=== PATIENT | male | born 1985 | race Caucasian/White ===

== ENCOUNTER 2018-02-14 23:12 | Emergency (ER) | payer BC, SELFPAY ==
[2018-02-14] MEDS ORDERED: Acetaminophen/Codeine 30-300mg Tablet ONE (23:57)
--- NOTE | 2018-02-15 07:38 | RAD ---
RADIOGRAPH RIGHT HAND 3 VIEWS: Date: 02/14/18 Time: 1158 hours HISTORY: 32-year-old male status post injury to dorsum of hand from fall. FINDINGS: It is difficult to evaluate the phalanges because they are flexed on these images. No fracture or dis location is identified. IMPRESSION: No fracture identified. POS: [facility]
== END 2018-02-15 00:39 | disposition home or self-care (01) ==
LOC: ERS 23:12
DX: S60.221A Contusion of right hand, initial encounter (principal); W01.10XA Fall on same level from slipping, tripping and stumbling with subsequent striking against unspecified object, initial encounter

== ENCOUNTER 2018-03-21 13:09 | Emergency (ER) | payer BC ==
--- NOTE | 2018-03-21 14:30 | RAD ---
FOUR VIEW LEFT KNEE SERIES: Indication: Injury, pain in left knee. FINDINGS: There is no evidence of fracture or dislocation of the left knee. No significant joint capsular diste ntion. Artifacts are seen overlying the imaged left thigh limiting visualization. IMPRESSION: No acute osseous abnormality left knee. POS: [facility]
[2018-03-21] MEDS ORDERED: Adacel (T-DAP) 0.5 ML VIAL ONE (14:38)
[2018-03-21] MEDS ORDERED: Ketorolac Tromethamine 30 MG/ML VIAL ONE (14:38)
== END 2018-03-21 15:32 | disposition home or self-care (01) ==
LOC: ERS 13:09
DX: S83.92XA Sprain of unspecified site of left knee, initial encounter (principal); L03.116 Cellulitis of left lower limb; F41.9 Anxiety disorder, unspecified; F32.9 Major depressive disorder, single episode, unspecified; Z71.6 Tobacco abuse counseling; F17.210 Nicotine dependence, cigarettes, uncomplicated; W01.0XXA Fall on same level from slipping, tripping and stumbling without subsequent striking against object, initial encounter
CPT/HCPCS: 90471; 90715; 96372; 99406; J1885

== ENCOUNTER 2019-04-18 19:18 | Emergency (ER) | payer BC ==
--- NOTE | 2019-04-18 19:36 | RAD ---
XR Hand Lt 3 View STANDARD: 04/18/2019 7:22 PM CLINICAL INDICATION: Hit left fingers with a hammer COMPARISON: None. TECHNIQUE: 3 views. Laterality: Left hand. FINDINGS: Bones: No acute osseous abnormality. Joints: Joint spaces are preserved.. Soft Tissue: Soft tissues are normal appearing.. IMPRESSION: No acute osseous abnormality..
[2019-04-18] MEDS ORDERED: HYDROcodone/Acetaminophen 10/325 mg Tablet ONE (20:30)
== END 2019-04-18 20:50 | disposition home or self-care (01) ==
LOC: ERS 19:18
DX: S60.042A Contusion of left ring finger without damage to nail, initial encounter (principal); Z71.6 Tobacco abuse counseling; F41.9 Anxiety disorder, unspecified; F32.9 Major depressive disorder, single episode, unspecified; F17.210 Nicotine dependence, cigarettes, uncomplicated; W23.0XXA Caught, crushed, jammed, or pinched between moving objects, initial encounter

== ENCOUNTER 2020-04-28 17:35 | Emergency (ER) | payer SELFPAY ==
[2020-04-28] MEDS ORDERED: Ketorolac Tromethamine 30 MG/ML VIAL ONE (18:37)
--- NOTE | 2020-04-28 18:42 | RAD ---
Exam:Right shoulder 3 views HISTORY: Pain x4 weeks. Fall 4 weeks ago. COMPARISON: None FINDINGS: Glenohumeral joint space is preserved. No fracture or dislocation. IMPRESSION: No fracture or dislocation.
== END 2020-04-28 19:07 | disposition home or self-care (01) ==
LOC: ERS 17:35
DX: M25.511 Pain in right shoulder (principal); M06.9 Rheumatoid arthritis, unspecified; F41.9 Anxiety disorder, unspecified; F32.9 Major depressive disorder, single episode, unspecified; F17.210 Nicotine dependence, cigarettes, uncomplicated
CPT/HCPCS: 96372; J1885

== ENCOUNTER 2020-09-22 03:24 | Emergency (ER) | payer BC, SELFPAY ==
[2020-09-22] MEDS ORDERED: Ketorolac Tromethamine 30 MG/ML VIAL ONE (07:44)
--- NOTE | 2020-09-22 08:12 | RAD ---
LEFT RIB SERIES INDICATION: Rib pain after leaning over a rail COMPARISON: None. FINDINGS: Visualized Left Chest: Visualized left lung is clear. No pneumothorax. Left Ribs: No displaced left-sided rib fracture is demonstrated. IMPRESSION: No displaced left-sided rib fracture
--- NOTE | 2020-09-22 09:12 | RAD ---
CHEST 1 VIEW PORTABLE: HISTORY: Chest pain, primarily left-sided. FINDINGS: Heart size is normal. The lungs appear clear. No confluent pneumonia, overt edema, or pleural effus ion. IMPRESSION: No significant acute intrathoracic disease. POS: [facility]
== END 2020-09-22 08:21 | disposition home or self-care (01) ==
LOC: ERS 03:24
DX: S20.212A Contusion of left front wall of thorax, initial encounter (principal); F17.210 Nicotine dependence, cigarettes, uncomplicated; M06.9 Rheumatoid arthritis, unspecified; X50.1XXA Overexertion from prolonged static or awkward postures, initial encounter
CPT/HCPCS: 71045; 96372; J1885

== ENCOUNTER 2021-09-10 12:53 | Emergency (ER) | payer BC, SELFPAY ==
[2021-09-10] MEDS ORDERED: Iopamidol-370 76% 500 ML 1 ML ONE (14:13)
[2021-09-10 14:45] LABS: #Basophils 0.1 thou/uL (0.0-0.2); #Eosinphils 0.2 thou/uL (0.0-0.7); #Monocytes 0.8 thou/uL (0.11-0.59); %Eosinophils 2.8 % (0.0-10.0); %Lymphocytes 24.2 % (21.0-51.0); %Monocytes 9.3 % (0.0-10.0); %Neutrophils 62.7 % (42.0-75.0); Hemoglobin 13.1 g/dL (14.0-18.0); Mean Corpuscular HGB CONC 31.6 g/dL (32.0-36.0); Mean Corpuscular Hemoglobin 29.2 pg (27.0-31.0); Mean Corpuscular Volume 92.4 fL (78.0-98.0); Platelet Count 322 thou/uL (130-400); RBC Distribution Width 11.2 % (11.5-14.5); Red Blood Cell (RBC) Count 4.47 mill/uL (4.70-6.10)
[2021-09-10] MEDS ORDERED: Bupivacaine 0.5% 10 ML VIAL ONE (14:58)
[2021-09-10] MEDS ORDERED: Ketorolac Tromethamine 30 MG/ML VIAL ONE (15:02)
[2021-09-10 15:05] LABS: ALT (SGPT) 10 U/L (8-55); AST (SGOT) 30 U/L (5-34); Albumin 4.2 g/dL (3.5-5.0); Alkaline Phosphatase 55 U/L (40-110); Anion Gap 17 mmol/L (10-20); BUN (Urea Nitrogen) 16 mg/dL (8.9-20.6); Bilirubin, Total 0.3 mg/dL (0.2-1.2); Calc. Creatinine Clearance 0 mL/min (70-130); Calcium 9.5 mg/dL (7.8-10.44); Carbon Dioxide 20 mmol/L (22-29); Chloride 102 mmol/L (98-107); Globulin 3.3 g/dL (2.4-3.5); Glucose 113 mg/dL (70-105); Protein, Total 7.5 g/dL (6.0-8.3); Sodium 135 mmol/L (136-145)
== END 2021-09-10 17:06 | disposition home or self-care (01) ==
LOC: ERS 12:53
DX: K05.10 Chronic gingivitis, plaque induced (principal); K02.9 Dental caries, unspecified
CPT/HCPCS: 36415; 70487; 80053; 83605; 85025; 87040; 93005; 96372; J1885; J3490; Q9967

== ENCOUNTER 2021-09-17 14:24 | Emergency (ER) | payer SELFPAY ==
[2021-09-17] MEDS ORDERED: Bicillin LA 1.2 MILLION UNITS/2 ML SYRINGE ONE (15:17)
[2021-09-17] MEDS ORDERED: HYDROcodone/Acetaminophen 5/325 mg Tablet ONE (15:52)
== END 2021-09-17 15:54 | disposition home or self-care (01) ==
LOC: ERS 14:24
DX: K04.7 Periapical abscess without sinus (principal); R68.84 Jaw pain
CPT/HCPCS: 96372; 99283; J0561

== ENCOUNTER 2022-02-27 15:51 | Emergency (ER) | payer BC | END 2022-02-27 18:45 | disposition home or self-care (01) | LOC: ERS 15:51 | DX: S09.90XA Unspecified injury of head, initial encounter (principal); R07.89 Other chest pain; F17.210 Nicotine dependence, cigarettes, uncomplicated; V48.1XXA Car passenger injured in noncollision transport accident in nontraffic accident, initial encounter | CPT/HCPCS: 70450; 71046; 71250; 72125; 93005 ==

== ENCOUNTER 2024-09-10 00:46 | Emergency (ER) | payer BC, OTHER, SELFPAY ==
[2024-09-10] MEDS ORDERED: Ibuprofen 800 MG TAB ONE (01:17)
== END 2024-09-10 02:28 | disposition home or self-care (01) ==
LOC: ERS 00:46
DX: S87.01XA Crushing injury of right knee, initial encounter (principal); M25.561 Pain in right knee; F17.210 Nicotine dependence, cigarettes, uncomplicated; W23.0XXA Caught, crushed, jammed, or pinched between moving objects, initial encounter; Y93.89 Activity, other specified; Y92.69 Other specified industrial and construction area as the place of occurrence of the external cause
CPT/HCPCS: 99283